=== PATIENT | female | born 1950 | race Caucasian/White ===

== ENCOUNTER → 2019-07-07 10:30 | Outpatient (BNVA) | payer MEDICARE, SELFPAY | PROVIDERS: Family Provider Nurse Practitioner; PCP Nurse Practitioner; Visit Provider Podiatrist Foot & Ankle Surgery | DX: M79.673 Pain in unspecified foot (principal) | CPT/HCPCS: 73630; 77077 ==

== ENCOUNTER 2019-09-16 15:09 | Outpatient (CLI) | payer MEDICARE, SELFPAY ==
--- NOTE | 2019-09-16 15:10 | MM_ITS ---
WS: [id number] Bilateral screening digital mammogram, 09/16/2019 Clinical Data: SCREENING Comparison: 10/02/2013, 09/15/2013, 08/14/2012, 06/22/2010, 12/16/2008. Findings: The breast parenchymal pattern shows heterogeneous density No spiculated masses or clustered calcific ations are seen. There are no secondary signs of carcinoma. MM/[id number] Impression: 1. Negative bilateral mammogram unchanged. 2. Recommend annual screening mammograms. BIRADS: 1-Negative FOLLOW UP: 1 Year Follow-up The CAD bad cloth checker was used.
== END 2019-09-16 15:10 | disposition home or self-care (01) ==
LOC: RADSHAW 15:09
PROVIDERS: Family Provider Nurse Practitioner; PCP Nurse Practitioner Family; Visit Provider Nurse Practitioner Family
DX: Z12.31 Encounter for screening mammogram for malignant neoplasm of breast (principal)
CPT/HCPCS: 77067

== ENCOUNTER 2020-10-11 15:02 | Outpatient (CLI) | payer MEDICARE, SELFPAY ==
--- NOTE | 2020-10-11 15:05 | MM_ITS ---
WS: [id number] BILATERAL SCREENING DIGITAL MAMMOGRAM WITH CAD HISTORY: SCREENING COMPARISON: 09/16/2019, 09/19/2017 and 09/10/2015 Bilateral CC and MLO views submitted. Computer aided detection analyzed. Breast composition: The breasts are heterogeneously dense, which may obscure small masses. No suspici ous masses, microcalcifications or architectural distortion. Benign calcifications within each breast . Stable nodule along the LEFT pectoralis muscle since 2013. MM/[id number] IMPRESSION: BI-RADS: 2-Benign FOLLOW UP: 1 Year Follow-up
== END 2020-10-11 15:03 | disposition home or self-care (01) ==
LOC: RADSHAW 15:04
PROVIDERS: PCP Nurse Practitioner Family; Visit Provider Family Medicine
DX: Z12.31 Encounter for screening mammogram for malignant neoplasm of breast (principal)
CPT/HCPCS: 77067